=== PATIENT | male | born 1955 | race Caucasian/White ===

== ENCOUNTER → 2018-10-22 | Outpatient (CLI) | payer BC | END | disposition home or self-care (01) | LOC: LAB 17:19 → LAB SHORT 17:19 | DX: N39.0 Urinary tract infection, site not specified (principal) | CPT/HCPCS: 82043 ==

== ENCOUNTER → 2021-03-08 | Outpatient (CLI) | payer BC | END | disposition home or self-care (01) | LOC: LAB 14:15 → LAB SHORT 14:15 | DX: J02.9 Acute pharyngitis, unspecified (principal) | CPT/HCPCS: 87081 ==

== ENCOUNTER → 2024-02-21 | Outpatient (CLI) | payer MEDICARE ==
[2024-02-21 19:09] LABS: Microalbumin, Random Urine 40.5 mg/L (0.000-20.000)
== END | disposition home or self-care (01) ==
LOC: LAB 16:22 → LAB SHORT 16:22
PROVIDERS: Nurse Practitioner Family
DX: E11.69 Type 2 diabetes mellitus with other specified complication (principal); N40.1 Benign prostatic hyperplasia with lower urinary tract symptoms
CPT/HCPCS: 82043; 82570